=== PATIENT | female | born 1960 | race Two or more races ===

== ENCOUNTER 2025-05-21 14:03 | Emergency (ER) | payer OTHER, SELFPAY ==
[2025-05-21 14:09] VITALS: BP 145/78; PULSE 66; RESP 18; TEMP 36.4; O2SAT 97
--- NOTE | 2025-05-21 14:15 | DI.RAD_ITS ---
Exam(s) XR KNEE LT 3V AP,LAT,RACHELLE EXAM: XR KNEE LT 3V AP,LAT,RACHELLE CLINICAL HISTORY: Inferomedial pain, swelling. TECHNIQUE: 2D digital imaging was performed. COMPARISON: No exams were available for comparison FINDINGS: 3 views No evidence of fracture but there is a moderate size joint effusion the knee evident. There are moderate degenerative changes in the medial lateral compartments as well some degenerative change in the patellofemoral compartment. Bone density normal. No osseous lesions. IMPRESSION: Degenerative changes. No fractures evident but there is a joint effusion which may signify internal derangement. There are no obvious loose intra-articular bodies. DATA REPOSITORY: RADIATION DOSE DELIVERED:
--- NOTE | 2025-05-21 14:15 | DI.RAD_ITS ---
Exam(s) XR ANKLE LT COMPLETE EXAM: XR ANKLE LT COMPLETE CLINICAL HISTORY: lateral pain, swelling, no trauma. TECHNIQUE: 2D digital imaging was performed. COMPARISON: No exams were available for comparison FINDINGS: 3 views No evidence of fracture or widening the ankle mortise. Talar dome unremarkable. No degenerative changes in the tibiotalar and subtalar joints. No osseous tarsal coalition. No inferior calcaneal spur. Bone density normal. No osseous lesions evident. IMPRESSION: No significant osseous findings in the ankle. DATA REPOSITORY: RADIATION DOSE DELIVERED:
--- NOTE | 2025-05-21 14:22 | W.ED.GENAD ---
Discharge Plan Disposition Patient Disposition: Home Condition: Stable Discharge Details Clinical Impression: Pain and swelling of left knee Primary Care Provider: Michelle,Local ED Provider: Carmen Jones Recommendations for Follow Up Recommended tests to be ordered by follow up provider: A1c Discharge Instructions Instructions: Knee Brace ED Additional Instructions: You were seen in the emergency department today for evaluation of pain and swelling of the left knee. In our department you had a full physical examination performed, and received ibuprofen to help your pain and swelling. Your x-ray showed no changes in your ankle, but do show some significant swelling in your knee. This can be due to a sprain, or damage to the ligaments inside the knee. I provided you with a brace to support the knee, and recommend that you use ice and elevation to reduce swelling. Your ankle likely hurts because you are walking in a different way because of your knee pain, there was no fracture or swelling found in that joint. Please use therapeutic dosing of Tylenol (acetaminophen) & Advil (ibuprofen) in an alternating fashion as follows: Take 1000mg of Tylenol every 6 hours without missing doses- that is 4 times per day. Mcc in between the Tylenol doses, take 600mg of Advil also on a 6 hour schedule, that is also 4 times per day. With this strategy, you will be taking something for fever/pain as often as every 3 hours. The daily maximum dosing of Tylenol is 4000mg, and the daily maximum dosing of Advil is 2400mg. Please note that some common cold medications & prescription pain medications may contain acetaminophen and you need to read OTC drug labels and factor that in to maximum daily doses. I provided you with a referral to establish with a primary care provider, they will call you to schedule an appointment and to discuss this visit and any symptoms that change, worsen, or persist. Please follow-up with your primary care provider in the next few days to discuss this visit and any symptoms that change, worsen, or persist. Thank you for allowing us to be part of your care. HPI General Mode of arrival: ambulatory. Date/Time Provider Initiated Documentation: 05/21/25 14:07. Limitations to Documentation: language barrier (Daughter prefers to translate). Information obtained by: patient, family and old records reviewed (None available, just moved here). HPI Narrative: This is a 64-year-old female patient without past medical history presenting for evaluation of left knee pain. She reports that for the last 3 to 4 days she has had swelling of the left knee just inferior and medial to the patella. She cannot remember any injuries, falls, or other events that led to the swelling and pain. She has been taking Tylenol every 6 hours without improvement. She has not noted any fevers or chills, redness, or warmth of the area. She states that she is also experiencing some tenderness in the lateral aspect of her ankle, to a lesser extent. She has been able to walk but it is difficult to bear weight due to the pain. No numbness or tingling, no other complaints at this time. Does not yet have an outpatient provider in this area. Related Data Allergies Allergy/AdvReac Type Severity Reaction Status Date / Time No Known Allergies Allergy Unverified 05/21/25 14:16 General Stated Complaint: Orthopedic CYNTHIA: 4 Exam Narrative Exam Narrative: Gen: Awake and alert, in no apparent distress HEENT: Non-icteric sclera Neck: Supple Lungs: No apparent respiratory distress, normal respiratory effort. CV: Appears well perfused, heart with regular rate and rhythm, strong distal pulses Abdomen: Non-distended MSK: Moves 4 extremities without apparent limitation in ROM. The patient does have an area of soft tissue swelling overlying the tibial plateau, without redness, induration, or warmth compared to unaffected skin. She is able to range her knee fully and does not have pain with passive range of motion. No tenderness along the joint lines or popliteal fossa. No calf swelling or tenderness, the patient does have some tenderness to palpation over the lateral malleolus. Strong DP pulses, preserved sensation and movement distal to this injury. Skin: Visualized skin without rashes, cyanosis. Neuro: Normal Gait, no obvious focal deficits or facial asymmetry. Speaks in full, clear sentences. Psych: Appropriate for situation. Course Vital Signs Vital signs: Vital Signs Temperature 36.4 C L 05/21/25 14:09 Pulse 66 05/21/25 14:09 Respiratory Rate 18 05/21/25 14:09 Blood Pressure 145/78 H 05/21/25 14:09 Pulse Oximetry 97 05/21/25 14:09 Temperature 36.4 C L 05/21/25 14:09 Temperature Source Oral 05/21/25 14:09 Pulse 66 05/21/25 14:09 Respiratory Rate 18 05/21/25 14:09 Blood Pressure 145/78 H 05/21/25 14:09 Blood Pressure Position Sitting 05/21/25 14:09 Pulse Oximetry 97 05/21/25 14:09 Oxygen Delivery Method Room Air 05/21/25 14:09 Oxygen Flow Rate 0 05/21/25 14:09 Pain Level 9 05/21/25 14:09 Medical Decision Making This is a 64-year-old female patient presenting for evaluation of left knee and ankle pain in the absence of trauma. Differential includes but is not limited to sprain/strain, fracture or dislocation would be unlikely given the lack of injury reported, and there was no mechanism of injury nor instability with ambulation that would be suggestive of severe ligamentous disruption or meniscus injury. No warmth, redness, or swelling to increase my concern for gout, pseudogout, or septic arthritis. No skin changes consistent with cellulitis. There is no whole leg swelling, calf tenderness, or tachycardia to increase my concern for DVT. Strong DP pulses and preserved neurovascular examination of the lower extremity decreases my concern for arterial occlusion. The patient has already taken Tylenol and I will provide her with ibuprofen for pain management. Will obtain an x-ray of the affected left knee and ankle. - I reviewed the patient's x-ray imaging, ankle is normal and I suspect her pain there is due to alterations in gait due to the knee pain. Her knee x-ray does show a joint effusion consistent with her external exam, may represent internal derangement per radiology. Given the lack of severe trauma, I think a hinged knee brace would be an appropriate support item, and she does not require crutches for ambulation. Will provide this patient with a PCP referral to reevaluate the knee after conservative management, and order MRI as appropriate. At this time, the patient has had a full medical evaluation and is safe for discharge to home. They are hemodynamically stable, ambulatory, and tolerating PO. They are understanding of the follow-up plan and return precautions. They left our facility without incident. Carmen Jones MD [facility] All Active Problems (Updated 05/21/25 @ 15:35 by Carmen Jones MD) Pain and swelling of left knee (Acute) Social History Smoking/Tobacco Use Status: Never Smoking risk assessment performed?: Yes Alcohol Intake: never Drug use: Never Substance use type: does not use Housing: house Do you feel safe at home: Yes Do you feel safe in your relationship?: Yes
[2025-05-21] MEDS: Ibuprofen 600 MG TAB PO (14:28)
== END 2025-05-21 15:43 | disposition home or self-care (01) ==
PROVIDERS: Emergency Provider Emergency Medicine
DX: M25.562 Pain in left knee (principal); M25.462 Effusion, left knee
CPT/HCPCS: 99283; 99284; 29505; 36416; 82962; 73562; 73610

== ENCOUNTER 2025-05-28 13:28 | Emergency (ER) | payer OTHER, SELFPAY ==
[2025-05-28 13:30] VITALS: BP 125/72; PULSE 71; RESP 14; TEMP 36.6; O2SAT 98
--- NOTE | 2025-05-28 14:15 | DI.US_ITS ---
Exam(s) US LOWER EXTREMITY VENOUS LT EXAM: US LOWER EXTREMITY VENOUS LT CLINICAL HISTORY: pain swelling left calf TECHNIQUE: Left lower extremity venous ultrasound performed using grayscale, color-flow, and spectral Doppler analysis. COMPARISON: No exams were available for comparison FINDINGS: The left common femoral, femoral and popliteal veins demonstrate normal compressibility, augmentation, and color Doppler. The posterior tibial and peroneal veins are patent. The saphenofemoral junction is unremarkable. There is no evidence of a Beasley cyst. There is fluid seen in the soft tissues ant erior and lateral to the knee corresponding to the patient's palpable abnormality. IMPRESSION: No evidence of a left lower extremity DVT. DATA REPOSITORY:
--- NOTE | 2025-05-28 14:20 | W.ED.GENAD ---
Discharge Plan Disposition Patient Disposition: Home Condition: Good Discharge Details Clinical Impression: Osteoarthritis of left knee Primary Care Provider: Michelle,Local ED Provider: Fidencio Ojeda Home Meds and New Rx's Prescriptions: New acetaminophen [Tylenol] 325 mg tablet 975 mg PO ONCE PRNQty: 60 0RF ibuprofen 600 mg tablet 600 mg PO Q6H PRNQty: 30 0RF Discharge Instructions Instructions: Osteoarthritis, Knee pain, Deciding to have a knee replacement Additional Instructions: Please follow-up with your primary care provider regarding your visit to the emergency department today. Be sure to discuss results of all test performed here today to include radiology, and laboratory testing as well as results for any pending cultures. Should your symptoms worsen, or if you develop new concerning symptoms, please return immediately emergency department for further evaluation. HPI General Date/Time Provider Initiated Documentation: 05/28/25 13:37. HPI Narrative: MDM/Narrative: Initial Assessment: 64-year-old female with leg pain for 5 days, no fever or chills, pain rated 9/10, no calf swelling. Differential Diagnosis: - Blood clot: Pain and swelling in leg; ultrasound ordered. - Infection: Pain in leg; blood work ordered. ED Course: - Ordered ultrasound to rule out blood clot. - Ordered blood work to check for infection. 1531 Results reviewed, lab work is all unremarkable no elevation inflammatory markers or leukocytosis to suggest septic arthritis, or gout. Ultrasound shows no DVT. Suspect patient has osteoarthritis, encouraged to continue use of Tylenol and ibuprofen, utilize RICE therapy, and consider a cane to assist with ambulation at home. Encouraged to follow-up with primary care. Disposition: Discharge: Home; return if symptoms worsen or new symptoms develop. This document was created with assistance from [employer]. The patient consented to its use. Disposition: Home HPI: The patient is a 64-year-old female presenting with a leg infection, accompanied by her son and an vice squad police officer (ID #[id number]). She reports experiencing pain in her leg for the past five days, with no history of falls or injuries. The pain does not exacerbate upon palpation. She denies experiencing pyrexia, chills, or calf swelling, although she notes the presence of ankle edema. The patient has no known medical conditions and no family history of gout or inflammatory disorders. She has no known drug allergies. Her son requests stronger analgesics, as ibuprofen 750 mg administered every 3-4 hours provides partial relief. The pain is severe, rated 9/10, and disrupts her sleep, causing significant emotional distress. She denies any recent insect bites. The patient was previously evaluated on 05/21/2025, during which an x-ray was performed, and she was advised to take ibuprofen 600 mg. She has been managing her pain with Tylenol and ibuprofen 400 mg, with the last dose taken at 1200 hours today. Additionally, she reports issues with her right hip that affect her mobility and mental health. ROS: Negative besides as mentioned above Exam: Vital signs: Reviewed. General Appearance: Alert and oriented. No acute distress. HEENT: NCAT, EOMI, not icteric. External ears normal. No rhinorrhea. Moist mucous membranes. Neck: Supple, full range of motion, no observable masses, No meningeal sign. Respiratory: No Respiratory distress. No tachypnea. Cardiovascular: RRR, no edema. Gastrointestinal: Soft, nondistended, No rebound tenderness. Back: No midline tenderness to palpation or palpable step-offs of the C/T/L spine. Musculoskeletal: Minimal swelling over inferolateral knee without ecchymosis, induration, erythema, or fluctuance. No palpable cords or significant tenderness in calf. Skin: Warm and dry, no rash. Neurological: Normal Gait, Grossly intact. Psychiatric: Appropriate for situation. Labs: Laboratory Tests Range/Units 05/28/25 14:49 WBC (4.4-10.8) 10^3/uL 7.75 RBC (3.93-5.22) 10^6/uL 3.99 Hgb (11.2-15.7) g/dL 11.0 L Hct (36.0-46.0) % 33.8 L MCV (80-95) fL 85 MCH (27.0-33.0) pg 27.6 MCHC (32.0-36.0) % 32.5 RDW (11.7-14.6) % 13.3 Plt Count (130-400) 10^3/uL 340 MPV (8.0-11.0) fL 8.4 Immature Gran % % 0.3 Neutrophils % % 59.7 Lymphocytes % % 33.0 Monocytes % % 6.3 Eosinophils % % 0.3 Basophils % % 0.4 Nucleated RBC % (0.0-0.3) % 0.0 Absolute Neutrophils (1.2-6.7) 10^3/uL 4.63 Absolute Lymphocytes (1.2-3.4) 10^3/uL 2.56 Absolute Monocytes (0.1-0.8) 10^3/uL 0.49 Absolute Eosinophils (0.0-0.7) 10^3/uL 0.02 Absolute Basophils (0.0-0.2) 10^3/uL 0.03 ESR (0-30) mm/hr 9 Sodium (136-145) mmol/L 139 Potassium (3.5-5.1) mmol/L 4.2 Chloride (98-107) mmol/L 105 Carbon Dioxide (21.0-32.0) mmol/L 29.0 Anion Gap (3-11) mmol/L 5.0 BUN (7-18) mg/dL 17 Creatinine (0.55-1.02) mg/dL 0.6 Est GFR (CKD-EPI 2020) (mL/min/1.73m2) 100.80 Glucose (74-106) mg/dL 105 Calcium (8.5-10.1) mg/dL 9.0 Total Bilirubin (0.2-1.0) mg/dL 0.2 AST (15-37) U/L 20 ALT (14-59) U/L 19 Alkaline Phosphatase (46-116) U/L 77 C-Reactive Protein (<or=0.5) mg/dL < 0.50 Total Protein (6.4-8.2) g/dL 7.7 Albumin (3.4-5.0) g/dL 3.9 Radiology: Exam(s) US LOWER EXTREMITY VENOUS LT EXAM: US LOWER EXTREMITY VENOUS LT CLINICAL HISTORY: pain swelling left calf TECHNIQUE: Left lower extremity venous ultrasound performed using grayscale, color-flow, and spectral Doppler analysis. COMPARISON: No exams were available for comparison FINDINGS: The left common femoral, femoral and popliteal veins demonstrate normal compressibility, augmentation, and color Doppler. The posterior tibial and peroneal veins are patent. The saphenofemoral junction is unremarkable. There is no evidence of a Beasley cyst. There is fluid seen in the soft tissues anterior and lateral to the knee corresponding to the patient's palpable abnormality. IMPRESSION: No evidence of a left lower extremity DVT. DATA REPOSITORY: Related Data Home Medications ?Medication ?Instructions ?Recorded ?Confirmed acetaminophen 325 mg tablet 975 mg (3 x 325 mg) PO ONCE PRN 05/28/25 (Tylenol) #60 tabs ibuprofen 600 mg tablet 600 mg PO Q6H PRN #30 tabs 05/28/25 Previous Rx's ?Medication ?Instructions ?Recorded acetaminophen 325 mg tablet 975 mg (3 x 325 mg) PO ONCE PRN 05/28/25 (Tylenol) #60 tabs ibuprofen 600 mg tablet 600 mg PO Q6H PRN #30 tabs 05/28/25 Allergies Allergy/AdvReac Type Severity Reaction Status Date / Time No Known Allergies Allergy Unverified 05/28/25 13:43 General Stated Complaint: Orthopedic CYNTHIA: 3 Course Vital Signs Vital signs: Vital Signs Temperature 36.6 C 05/28/25 13:30 Pulse 71 05/28/25 13:30 Respiratory Rate 14 05/28/25 13:30 Blood Pressure 125/72 05/28/25 13:30 Pulse Oximetry 98 05/28/25 13:30 Temperature 36.6 C 05/28/25 13:30 Temperature Source Oral 05/28/25 13:30 Pulse 71 05/28/25 13:30 Respiratory Rate 14 05/28/25 13:30 Blood Pressure 125/72 05/28/25 13:30 Pulse Oximetry 98 05/28/25 13:30 Oxygen Delivery Method Room Air 05/28/25 13:30 Oxygen Flow Rate 0 05/28/25 13:30 Pain Level 9 05/28/25 13:30 PFSH All Active Problems (Updated 05/28/25 @ 15:33 by Fidencio Ojeda MD) Osteoarthritis of left knee (Acute) Pain and swelling of left knee (Acute) Social History Smoking/Tobacco Use Status: Never Smoking risk assessment performed?: Yes Alcohol Intake: never Drug use: Never Substance use type: does not use Housing: house Do you feel safe at home: Yes Do you feel safe in your relationship?: Yes
[2025-05-28] MEDS: oxyCODONE 5 MG TAB PO (14:36)
[2025-05-28 15:00] LABS: Abs Immature Grans 0.02 10^3/uL (0.0-0.06); HCT 33.8 % (36.0-46.0); HGB 11.0 g/dL (11.2-15.7); Immature Grans % 0.3 %; MCH 27.6 pg (27.0-33.0); MCHC 32.5 % (32.0-36.0); MCV 85 fL (80-95); MPV 8.4 fL (8.0-11.0); Platelet Count 340 10^3/uL (130-400); RBC 3.99 10^6/uL (3.93-5.22); RDW 13.3 % (11.7-14.6); RDW-SD 41.3 fL; WBC 7.75 10^3/uL (4.4-10.8)
[2025-05-28 15:03] LABS: ESR 9 mm/hr (0-30)
[2025-05-28 15:20] LABS: ALT 19 U/L (14-59); AST 20 U/L (15-37); Albumin 3.9 g/dL (3.4-5.0); Alkaline Phosphatase 77 U/L (46-116); Anion Gap 5.0 mmol/L (3-11); BUN 17 mg/dL (7-18); Bilirubin, Total 0.2 mg/dL (0.2-1.0); CO2 29.0 mmol/L (21.0-32.0); Calcium 9.0 mg/dL (8.5-10.1); Chloride 105 mmol/L (98-107); Estimated GFR 100.80 (mL/min/1.73m2); Glucose 105 mg/dL (74-106); Potassium 4.2 mmol/L (3.5-5.1); Sodium 139 mmol/L (136-145); Total Protein 7.7 g/dL (6.4-8.2)
[2025-05-28 15:23] LABS: C-Reactive Protein < 0.50 mg/dL (<or=0.5)
[2025-05-28 15:49] VITALS: BP 146/68; PULSE 61; O2SAT 100
== END 2025-05-28 15:49 | disposition home or self-care (01) ==
PROVIDERS: Emergency Provider General Practice
DX: M25.462 Effusion, left knee; M17.12 Unilateral primary osteoarthritis, left knee; M25.562 Pain in left knee
CPT/HCPCS: 36415; 80053; 85652; 99284; 85025; 86140; 93971; 99283